=== PATIENT | female | born 1950 | race Two or more races ===

== ENCOUNTER 2021-06-07 09:45 | Inpatient (IN) | payer OTHER ==
[~2021-06-07] VITALS: Ht 162.6 cm; Wt 60.8 kg
[2021-06-07] MEDS ORDERED: NIFEDIPINE20 MG PO (13:09)
[2021-06-07] MEDS ORDERED: GLIMEPIRIDE2 MG (13:10)
[2021-06-07] MEDS ORDERED: COZAAR50 MG PO (13:10)
[2021-06-08] MEDS ORDERED: ATORVASTATIN CA20 MG (11:42)
[2021-06-09] MEDS ORDERED: NIFEDIPINE ER30 M1 (08:29)
[2021-06-09] MEDS ORDERED: OXYBUTYNIN CHLOR5 M1 (08:29)
== END 2021-06-11 12:54 | disposition home or self-care (01) | DRG 735 ==
LOC: O/R 06-08 05:50 → SURH 06-08 09:00 → OB/GYN 06-08 15:35
PROVIDERS: ADMIT Specialist; ATTEND Specialist
PROC: 07TD0ZZ Resection of Aortic Lymphatic, Open Approach (ICD-10-PCS; 2021-06-08)
PROC: 0UT90ZZ Resection of Uterus, Open Approach (ICD-10-PCS; 2021-06-08)
PROC: 0UT70ZZ Resection of Bilateral Fallopian Tubes, Open Approach (ICD-10-PCS; 2021-06-08)
PROC: 0UT20ZZ Resection of Bilateral Ovaries, Open Approach (ICD-10-PCS; 2021-06-08)
PROC: 07TC0ZZ Resection of Pelvis Lymphatic, Open Approach (ICD-10-PCS; principal; 2021-06-08 09:00)
DX: N80.0 Endometriosis of uterus (principal); D25.1 Intramural leiomyoma of uterus; D25.2 Subserosal leiomyoma of uterus; Z20.822 Contact with and (suspected) exposure to COVID-19